=== PATIENT | male | born 1995 | race Asian ===

== ENCOUNTER 2017-11-02 12:33 | Emergency (ER) | payer OTHER ==
[~2017-11-02] VITALS: Ht 175.3 cm; Wt 97.5 kg
[2017-11-02 12:42] VITALS: BP_SYST 146
[2017-11-02 13:15] VITALS: BP_SYST 146
== END 2017-11-02 13:15 | disposition home or self-care (01) ==
LOC: SED 12:33
DX: S62.391A Other fracture of second metacarpal bone, left hand, initial encounter for closed fracture (principal); Y04.0XXA Assault by unarmed brawl or fight, initial encounter; Y93.89 Activity, other specified; Y92.89 Other specified places as the place of occurrence of the external cause; Y99.8 Other external cause status
CPT/HCPCS: 99283